=== PATIENT | male | born 1975 | race Two or more races ===

== ENCOUNTER 2019-04-07 22:39 | Emergency (ER) | payer MEDICAID ==
[~2019-04-07] VITALS: Ht 182.9 cm; Wt 81.2 kg
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
[2019-04-07 23:29] VITALS: BP 123/84
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
[2019-04-08] MEDS ORDERED: HYDROcodone/Acetamin 5/325 tab ORAL ONE
--- NOTE | 2019-04-08 00:08 | NUR ---
ED Nurse Note: Pt to CT
--- NOTE | 2019-04-08 00:25 | NUR ---
ED Nurse Note: PT back from CT
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
[2019-04-08] MEDS ORDERED: ACETAMINOPHEN-1 EAC1 ORAL (00:59)
[2019-04-08 01:00] VITALS: BP 123/84
--- NOTE | 2019-04-08 01:00 | NUR ---
ER DISCHARGE NOTE: Patient is cleared to be discharged per ERMD, pt is aox4, on room air, with stable vital signs. pt was given dc and prescription instructions, pt was able to verbalize understanding, pt id band removed without complications. pt is able to ambulate with steady gait. pt took all belongings.
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
[2019-04-09] MEDS ORDERED: ELIQUIS5 MG PO (19:12)
[2019-04-09] MEDS ORDERED: PROMETHAZINE-C118 M1 ORAL (20:15)
[2019-04-09] MEDS ORDERED: TESSALON PERLE100 MG ORAL (20:15)
[2019-04-09] MEDS ORDERED: ALBUTEROL SULF8.5 GM INH (20:15)
[2019-04-09] MEDS ORDERED: ZITHROMAX250 MG ORAL (20:15)
== END 2019-04-08 01:00 | disposition home or self-care (01) ==
LOC: EMR 23:18
DX: S09.90XA Unspecified injury of head, initial encounter (principal); J06.9 Acute upper respiratory infection, unspecified; Z86.718 Personal history of other venous thrombosis and embolism; Z79.01 Long term (current) use of anticoagulants; V43.62XA Car passenger injured in collision with other type car in traffic accident, initial encounter; Y92.410 Unspecified street and highway as the place of occurrence of the external cause
CPT/HCPCS: 70450; 71045; Z7502; 99284

== ENCOUNTER 2019-04-09 19:00 | Emergency (ER) | payer MEDICAID ==
[~2019-04-09] VITALS: Ht 182.9 cm; Wt 81.2 kg
[~2019-04-09 19:00] MED LIST: ACETAMINOPHEN-1 EAC1 ORAL
[2019-04-09 19:10] VITALS: BP 123/79
--- NOTE | 2019-04-09 19:10 | NUR ---
ED Nurse Note: Pt walked into ED from home for c/o cough x1 week that is painful causing chest pain. Pt also reports body aches, fever at home and chills. No fever noted upon ED triage. Pt is aaox4, no acute distress noted.
[2019-04-09] MEDS ORDERED: ELIQUIS5 MG PO (19:12)
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
[2019-04-09] MEDS ORDERED: ZITHROMAX250 MG ORAL (20:15)
[2019-04-09] MEDS ORDERED: ALBUTEROL SULF8.5 GM INH (20:15)
[2019-04-09] MEDS ORDERED: TESSALON PERLE100 MG ORAL (20:15)
[2019-04-09] MEDS ORDERED: PROMETHAZINE-C118 M1 ORAL (20:15)
[2019-04-09 20:20] VITALS: BP 120/85
--- NOTE | 2019-04-09 20:20 | NUR ---
ER DISCHARGE NOTE: Patient is cleared to be discharged per ERMD, pt is aox4, on room air, with stable vital signs. pt was given dc and prescription instructions, pt was able to verbalize understanding, pt id band removed. pt is able to ambulate with steady gait. pt took all belongings.
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
== END 2019-04-09 20:20 | disposition home or self-care (01) ==
LOC: EMR 20:20
DX: J18.9 Pneumonia, unspecified organism (principal)
CPT/HCPCS: 71045; 93005; Z7502; 99283